=== PATIENT | female | born 1985 ===

== ENCOUNTER 2020-02-24 18:39 | Observation (INO) | payer OTHER ==
[~2020-02-24] VITALS: Ht 162 cm; Wt 78.9 kg
== END 2020-04-02 16:40 | disposition home or self-care (01) ==
LOC: 4S 04-02 14:01
PROVIDERS: ADMIT Obstetrics & Gynecology; ATTEND Obstetrics & Gynecology
DX: Z03.818 Encounter for observation for suspected exposure to other biological agents ruled out (principal); O26.893 Other specified pregnancy related conditions, third trimester; Z3A.38 38 weeks gestation of pregnancy
CPT/HCPCS: 76811; G0378; U0003

== ENCOUNTER 2020-04-07 10:40 | Inpatient (IN) | payer OTHER ==
[~2020-04-07] VITALS: Ht 162 cm; Wt 77.1 kg
[2020-04-07] MEDS ORDERED: RINGERS SOLUTION,LACTATED 1,000 ML IV ONE (10:43)
[2020-04-07] MEDS ORDERED: CITRIC ACID/SODIUM CITRATE 30 ML SOLUTION UDCUP PO ONE (10:45)
[2020-04-07] MEDS ORDERED: METOCLOPRAMIDE HCL 5 MG/ML 2 ML VIAL IVP ONE (10:45)
[2020-04-07 11:19] LABS: BASOPHILS % (AUTO) 1.1 % (0.0-2.0); EOSINOPHILS % (AUTO) 1.3 % (1.0-6.0); HEMATOCRIT 36.5 % (36-46); HEMOGLOBIN 12.3 g/dL (12.0-16.0); LYMPHOCYTES # (AUTO) 0.9 K/uL (1.0-4.8); LYMPHOCYTES % (AUTO) 17.7 % (22.0-44.0); MEAN CORPUSCULAR HEMOGLOBIN 28.9 pg (26.0-34.0); MEAN CORPUSCULAR HGB CONC 33.6 G/dL (31.0-37.0); MEAN CORPUSCULAR VOLUME 86 fL (80-100); MONOCYTES # (AUTO) 0.4 K/uL (0.1-1.0); MONOCYTES % (AUTO) 7.4 % (2.0-9.0); NEUTROPHILS # (AUTO) 3.8 K/uL (1.8-7.7); NEUTROPHILS % (AUTO) 72.5 % (40.0-70.0); PLATELET COUNT (AUTO) 168 K/uL (150-450); RED BLOOD CELL COUNT(AUTO) 4.24 MIL/uL (4.00-5.20); RED CELL DISTRIBUTION WIDTH 14.6 % (11.5-14.5)
[2020-04-07 11:35] VITALS: BP 110/64
[2020-04-07] MEDS ORDERED: FentaNYL CITRATE-PF 100 MCG/2 ML VIAL IVP PRN ×2 (11:45)
[2020-04-07] MEDS ORDERED: NALBUPHINE HCL 10 MG/ML VIAL IVP PRN ×2 (11:45)
[2020-04-07] MEDS ORDERED: MORPHINE SULFATE 10 MG/ML SYRINGE IVP PRN (11:45)
[2020-04-07] MEDS ORDERED: NALOXONE HCL 0.4 MG/ML VIAL IVP PRN (11:45)
[2020-04-07] MEDS ORDERED: ONDANSETRON HCL 4 MG/2 ML VIAL IVP PRN ×2 (11:45)
[2020-04-07] MEDS ORDERED: DiphenhydrAMINE HCL 50 MG/ML VIAL IVP PRN (11:45)
[2020-04-07] MEDS ORDERED: BUPIVACAINE HCL/DEX-WATER/PF 0.75% 2 ML AMP ONE (11:55)
[2020-04-07] MEDS ORDERED: FentaNYL CITRATE-PF 100 MCG/2 ML VIAL ONE (11:55)
[2020-04-07] MEDS ORDERED: MORPHINE SULFATE/PF 1 MG/ML 10 ML AMP ONE (11:55)
[2020-04-07] MEDS ORDERED: ACETAMINOPHEN 1000 MG/ISO-OSM 100 ML IV ONE (11:55)
[2020-04-07] MEDS ORDERED: GLYCERIN/WITCH HAZEL LEAF 40 PADS JAR TP PRN (14:15)
[2020-04-07] MEDS ORDERED: OxyCODONE HCL/ACETAMINOPHEN 5-325 MG TABLET PO PRN ×2 (14:15)
[2020-04-07] MEDS: OXYTOCIN 20 UNITS/LACT RINGERS 1,000 ML IV SCH ×2 (16:13→22:49)
[2020-04-07] MEDS: DEXTROSE 5%-0.45% SODIUM CHL 1,000 ML IV SCH (16:13)
[2020-04-07] MEDS ORDERED: OXYGEN THERAPY IH SCH ×2 (20:00)
[2020-04-07] MEDS: KETOROLAC TROMETHAMINE 30 MG/ML VIAL IVP SCH (20:16)
[2020-04-07] MEDS: ACETAMINOPHEN 1000 MG/ISO-OSM 100 ML IV SCH (20:39)
[2020-04-08] MEDS: KETOROLAC TROMETHAMINE 30 MG/ML VIAL IVP SCH (02:10)
[2020-04-08] MEDS: ACETAMINOPHEN 1000 MG/ISO-OSM 100 ML IV SCH (02:12)
[2020-04-08] MEDS: DEXTROSE 5%-0.45% SODIUM CHL 1,000 ML IV SCH (04:30)
[2020-04-08 06:17] LABS: BASOPHILS % (AUTO) 0.3 % (0.0-2.0); EOSINOPHILS % (AUTO) 0.4 % (1.0-6.0); HEMATOCRIT 29.8 % (36-46); HEMOGLOBIN 10.4 g/dL (12.0-16.0); LYMPHOCYTES # (AUTO) 1.1 K/uL (1.0-4.8); LYMPHOCYTES % (AUTO) 15.6 % (22.0-44.0); MEAN CORPUSCULAR HEMOGLOBIN 29.9 pg (26.0-34.0); MEAN CORPUSCULAR HGB CONC 34.8 G/dL (31.0-37.0); MEAN CORPUSCULAR VOLUME 86 fL (80-100); MONOCYTES # (AUTO) 0.7 K/uL (0.1-1.0); NEUTROPHILS # (AUTO) 5.3 K/uL (1.8-7.7); NEUTROPHILS % (AUTO) 73.7 % (40.0-70.0); PLATELET COUNT (AUTO)-OB 139 K/uL (150-450); RED BLOOD CELL COUNT(AUTO) 3.47 MIL/uL (4.00-5.20); RED CELL DISTRIBUTION WIDTH 14.9 % (11.5-14.5)
[2020-04-08] MEDS: IBUPROFEN 600 MG TABLET PO PRN ×2 (16:54→23:53)
[2020-04-08] MEDS: MAGNESIUM HYDROXIDE SUSPENSION 30 ML UDCUP PO SCH (21:16)
[2020-04-09] MEDS: MAGNESIUM HYDROXIDE SUSPENSION 30 ML UDCUP PO SCH (08:33)
[2020-04-09] MEDS: IBUPROFEN 600 MG TABLET PO PRN (08:33)
[2020-04-09] MEDS ORDERED: IBUP-2070 PO (10:58)
[2020-04-09] MEDS ORDERED: DOCU-275 PO (10:59)
[2020-04-09] MEDS ORDERED: PREN-217 PO (11:01)
== END 2020-04-09 14:20 | disposition home or self-care (01) | DRG 785 ==
LOC: 4S 10:40 → OBSVTOIN 10:40
PROVIDERS: ADMIT Obstetrics & Gynecology; ATTEND Obstetrics & Gynecology
PROC: 10D00Z1 Extraction of Products of Conception, Low, Open Approach (ICD-10-PCS; principal; 2020-04-07)
PROC: 0U570ZZ Destruction of Bilateral Fallopian Tubes, Open Approach (ICD-10-PCS; 2020-04-07)
DX: O34.211 Maternal care for low transverse scar from previous cesarean delivery (principal); Z3A.39 39 weeks gestation of pregnancy; Z37.0 Single live birth; Z30.2 Encounter for sterilization
CPT/HCPCS: 86850; 86900; 86901; 86923; 87081; 88302; J0131; J1885; J2765; J3010; J3490